=== PATIENT | male | born 1965 | race Caucasian/White ===

== ENCOUNTER 2017-10-07 10:02 | Emergency (ER) | payer BC ==
--- NOTE | 2017-10-07 11:03 | RAD ---
INDICATION: Left rib injury. COMPARISON: There are no prior studies available for comparison. TECHNIQUE: 4 views of the left ribs and dual-energy PA views of the chest were obtained. FINDINGS: There are slightly displaced fractures of the left lateral eighth, ninth and 10th ribs. The heart is within normal limits in size. The lungs are underinflated and clear. No pleural effusion or pneumothorax is seen. IMPRESSION: SLIGHTLY DISPLACED FRACTURES OF THE LEFT 8TH THROUGH 10TH RIBS.
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
[2017-10-07] MEDS ORDERED: HYDROcodone/ACETAMIN 5-325 MG* 1 TAB PO ONE (11:37)
--- NOTE | 2017-10-07 11:50 | RAD ---
HISTORY: fall, bruising/pain COMPARISONS: None. TECHNIQUE: Multiple transverse and longitudinal ultrasound images were obtained of the spleen using grayscale and color Doppler imaging. FINDINGS: The spleen is homogeneously echotexture, measuring 11 x 4.9 x 3.5 cm in size. There is no perisplenic fluid collection. IMPRESSION: NORMAL SPLEEN
[2017-10-07 12:14] VITALS: BP 157/96
== END 2017-10-07 12:15 | disposition home or self-care (01) ==
LOC: ED 10:02
DX: S22.42XA Multiple fractures of ribs, left side, initial encounter for closed fracture (principal); F17.200 Nicotine dependence, unspecified, uncomplicated
CPT/HCPCS: 76705; 99282